=== PATIENT | female | born 1985 | race Caucasian/White ===

== ENCOUNTER 2017-09-21 16:41 | Inpatient (IN) | payer OTHER ==
[~2017-09-21] VITALS: Ht 157.5 cm; Wt 81.8 kg
[~2017-09-21 16:41] MED LIST: AMOXICILLIN 50500 MG PO; MACROBID 1100 MG/CAP PO; MOTRIN 800800 MG/TAB PO; PERCOCET 325 MG1 TA2 PO; PRENATAL1 TA1
[2017-10-14] VITALS (18 sets, daily range): BP systolic 112–139; BP diastolic 55–94; PULSE 72–114; TEMP 97.3–98.2
[2017-10-14 09:24] LABS: BASO % 0.4 % (0.0-2.0); EOS # 0.2 (0.0-0.7); EOS % 2.4 % (0-4.0); GRAN # 6.9 (1.4-6.5); HEMATOCRIT 39.1 % (37.0-47.0); HEMOGLOBIN 12.9 g/dl (12.5-16.0); LYMPH % 19.4 % (20.0-51.0); MEAN CELL VOLUME 91 fl (80.0-100.0); MEAN CORPUSCULAR HEMOGLOBIN 30 pg (27.0-31.0); MEAN CORPUSCULAR HGB CONC 33 g/dl (33.0-37.0); MEAN PLATELET VOLUME 12.7 fl (7.4-10.4); MONO # 0.8 (0.1-0.6); MONO % 8.3 % (1.7-9.3); PLATELET COUNT 137 K/mm3 (130-400); RED BLOOD COUNT 4.32 M/mm3 (4.10-5.30); REDCELL DISTRIBUTION WIDTH-CV 13.3 % (11.5-14.5)
[2017-10-14] MEDS ORDERED: TUMS500 MG (09:41)
[2017-10-14] MEDS ORDERED: PRENATAL (09:41)
[2017-10-14] MEDS ORDERED: ZANTAC 7575 MG PO (09:42)
[2017-10-15 03:30] VITALS: BP 107/60; PULSE 80; TEMP 97.5
[2017-10-15 08:06] VITALS: BP 107/73; PULSE 80
[2017-10-15 16:54] VITALS: BP 110/64; PULSE 99
[2017-10-15 19:30] VITALS: BP 111/73; PULSE 94; TEMP 98.6
[2017-10-16 08:05] VITALS: BP 105/71; PULSE 77; TEMP 97.2
[2017-10-16] MEDS ORDERED: IBU800 M1 PO (08:54)
[2017-10-16] MEDS ORDERED: PERCOCET 325 MG1 TA2 PO (08:55)
[2017-10-16 16:04] VITALS: BP 105/59; PULSE 71; TEMP 97.6
[2017-10-16 20:00] VITALS: BP 112/56; PULSE 85; TEMP 97.9
[2017-10-17 08:10] VITALS: BP 110/72; PULSE 91; TEMP 97.9
[2017-10-17 17:00] VITALS: BP 133/73; PULSE 93; TEMP 98.1
[2017-10-17 20:00] VITALS: BP 116/68; PULSE 72; TEMP 98
[2017-10-18 08:15] VITALS: BP 118/81; PULSE 87; TEMP 98
== END 2017-10-18 12:15 | disposition home or self-care (01) | DRG 765 ==
LOC: LDR 10-11 16:33 → OB 10-14 08:45 → LDR 10-14 11:04 → OB 10-18 12:15
PROVIDERS: Obstetrics & Gynecology
PROC: 10D00Z1 Extraction of Products of Conception, Low, Open Approach (ICD-10-PCS; principal; 2017-10-14)
DX: O34.211 Maternal care for low transverse scar from previous cesarean delivery (principal); O36.0130 Maternal care for anti-D [Rh] antibodies, third trimester, not applicable or unspecified; N85.8 Other specified noninflammatory disorders of uterus; O48.0 Post-term pregnancy; Z3A.40 40 weeks gestation of pregnancy; Z37.0 Single live birth
CPT/HCPCS: J0690; J1885; J2175; J2370; J2405; J2590; J3010; J7120